=== PATIENT | male | born 1995 | race African-American/Black ===

== ENCOUNTER 2019-02-19 21:24 | Emergency (ER) | payer OTHER ==
[2019-02-19 21:35] VITALS: BP 146/86
--- NOTE | 2019-02-19 21:53 | UC ---
Headache HPI - HPI Summary HPI Summary: Pt presents to with progressive left frontal AMAYA since noon today. States woke him from a nap. Pt states pain has increased throughout the day. Feels pressure behind left eye, worse with leaning forward. No n/v. no vision changes , but "pressure" No trauma. No fever, chills. Took Motrin this afternoon and Tylenol sinus this evening with little improvement. N h/o similar. No ingestion , fumes. No trauma. No h/o headaches. No ear pain, sinus pain, sore throat medications reviewed - History Of Current Complaint Chief Complaint: UCHeadache Stated Complaint: HEADACHE Time Seen by Provider: 02/19/19 21:35 Hx Obtained From: Patient Pain Intensity: 9 Pain Scale Used: 0-10 Numeric - Allergies/Home Medications Allergies/Adverse Reactions: Allergies Allergy/AdvReac Type Severity Reaction Status Date / Time No Known Allergies Allergy Verified 02/20/19 00:33 PMH/Surg Hx/FS Hx/Imm Hx Previously Healthy: Yes - Surgical History Surgical History: None - Social History Occupation: Employed Full-time Lives: With Family Alcohol Use: Weekly Alcohol Amount: one drink Substance Use Type: None Substance Use Comment - Amount & Last Used: daily Smoking Status (MU): Former Smoker When Did the Patient Quit Smoking/Using Tobacco: one week ago Review of Systems All Other Systems Reviewed And Are Negative: Yes Constitutional: Positive: Negative Skin: Positive: Negative Eyes: Positive: Other - pressure behind left eye ENT: Positive: Negative Respiratory: Positive: Negative Cardiovascular: Positive: Negative Gastrointestinal: Positive: Negative Physical Exam - Summary Physical Exam Summary: Vital Signs Reviewed: Yes A+Ox3, appears uncomfortable - holding left frontal area Eyes: Conjunctiva Clear, ALBAN, EOM intact and full, no photophobia ENT: Hearing grossly normal, TM x2 clear no fluid, no erythema turbinates wnl mmmoist neck: supple, no LA, frontal AMAYA increases with leaning forward Respiratory: Positive: No respiratory distress, No accessory muscle use, CTA thoughout no w/r Cardiovascular: skin color reflect adequate perfusion RRR nl s1, s2 no m/r no temporal artery pain Musculoskeletal Exam: JOHANSEN x 4 without difficulty Neurological: Positive: Alert, ambulatory without difficulty CN 2-12 intact Psychological: Positive: Normal Response To Family Skin: Positive: no rash, no ecchymosis Triage Information Reviewed: Yes Vital Signs: Initial Vital Signs Temp 98.5 F 02/19/19 21:29 Pulse 100 02/19/19 21:29 Resp 16 02/19/19 21:29 BP 146/86 02/19/19 21:29 Pulse Ox 100 02/19/19 21:29 Headache Course/Dx - Course Course Of Treatment: Pt presents to with progressive left sided AMAYA today. Pt has taken Motrin and APAPsinus without relief. No fever, chills no h/o similar, no trauma, no vision changes but pressure behind left eye VS reviewed BP related to pain, urgent condition Pt with obvious discomfort recommned pt to ED for further eval - pt declined IV and analgeia at - declined EMS pt has a drive spokde with [place] [facility] in ED -aware pt coming by POV - Differential Dx/Diagnosis Provider Diagnosis: Headache above the eye region Discharge - Sign-Out/Discharge Documenting (check all that apply): Patient Departure All imaging exams completed and their final reports reviewed: No Studies - Discharge Plan Condition: Fair Disposition: HOME-RECOMMEND TO ED Patient Education Materials: Acute Headache (ED) Referrals: Roque Falcon MD [Primary Care Provider] - Additional Instructions: The doctor that evaluated you today thinks that you need additional testing that can be completed the emergency department. It is recommended that you go directly to emergency department for further evaluation. This evaluation may include blood work or imaging. This testing will be directed and decided by the provider that evaluate you at the emergency department. If pain becomes worse, you feel lightheaded, you have uncontrolled vomiting, or you have any other concerns while you are being driven to emergency department as recommended to pullover and contact 911. - Billing Disposition and Condition Condition: FAIR Disposition: Home-Recommend to ED
== END 2019-02-19 21:46 | disposition home health service (06) ==
LOC: UCEAST 21:24
DX: R51 Headache (principal); Z87.891 Personal history of nicotine dependence
CPT/HCPCS: 99202; G0463

== ENCOUNTER 2019-02-19 22:08 | Emergency (ER) | payer OTHER ==
[2019-02-20] MEDS ORDERED: Ketorolac INJ* 30 MG/ML 1 ML VIAL IV PUSH ONE (00:42)
[2019-02-20] MEDS ORDERED: diPHENhydraMINE IV* 50 MG/ML 1 ml VIAL (BENADRYL) SLOW PUSH ONE (00:43)
[2019-02-20] MEDS ORDERED: NS 0.9% 1000 ML** 1,000 ML IV ONE (00:43)
[2019-02-20] MEDS ORDERED: Metoclopramide IV* 5 MG/ML 2 ML VIAL IV SLOW PU ONE (00:43)
--- NOTE | 2019-02-20 00:56 | ED ---
Complex/Multi-Sys Presentation - HPI Summary HPI Summary: This patient is a 23 year old M presenting to [facility] accompanied by with a chief complaint of AMAYA characterized as a pressure behind his left eye since 1200 02/19/19. Symptoms aggravated by light. Symptoms alleviated by nothing. Pt reports that his neck is stiff and his eyesight in the left eye is impaired. Pt denies vomiting and similar prior episodes. Pt took ibuprofen at 1230, and Tylenol sinus relief at 1700 on 02/19/19. - History Of Current Complaint Chief Complaint: EDHeadache Time Seen by Provider: 02/20/19 00:28 Hx Obtained From: Patient Onset/Duration: Sudden Onset, Lasting Hours, Still Present Timing: Constant, Hours Location: Pain At: - left eye Character: Pressure Aggravating Factor(s): Light Alleviating Factor(s): Nothing Associated Signs And Symptoms: Positive: Headache, Other - Positive: Vision impairment in left eye, stiff neck, photophobia, pressure in left eye. Negative : Vomiting - Allergies/Home Medications Allergies/Adverse Reactions: Allergies Allergy/AdvReac Type Severity Reaction Status Date / Time No Known Allergies Allergy Verified 02/20/19 00:33 PMH/Surg Hx/FS Hx/Imm Hx Endocrine/Hematology History: Denies: Hx Diabetes, Hx Thyroid Disease Cardiovascular History: Denies: Hx Hypertension Respiratory History: Denies: Hx Asthma, Hx Chronic Obstructive Pulmonary Disease (COPD) GI History: Denies: Hx Ulcer - Surgical History Surgical History: None Infectious Disease History: No Infectious Disease History: Denies: Hx Hepatitis, Hx Human Immunodeficiency Virus (HIV), Traveled Outside the [place] in Last 30 Days - Family History Known Family History: Negative: Cardiac Disease, Diabetes - Social History Alcohol Use: Weekly Alcohol Amount: one drink Substance Use Type: Reports: Marijuana Substance Use Comment - Amount & Last Used: daily Smoking Status (MU): Former Smoker Review of Systems Positive: Photophobia, Blurred Vision - Left eye, Other - Positive: Pressure behind left eye Negative: Vomiting Musculoskeletal: Other - Positive: Stiff neck Positive: Headache All Other Systems Reviewed And Are Negative: Yes Physical Exam - Summary Physical Exam Summary: VITAL SIGNS: Reviewed. GENERAL: Patient is a well-developed and nourished MALE who is lying comfortable in the stretcher. Patient is not in any acute respiratory distress. HEAD AND FACE: No signs of trauma. No ecchymosis, hematomas or skull depressions. No sinus tenderness. EYES: PERRLA, EOMI x 2, No injected conjunctiva, no nystagmus. EARS: Hearing grossly intact. Ear canals and tympanic membranes are within normal limits. MOUTH: Oropharynx within normal limits. NECK: Supple, trachea is midline, no adenopathy, no JVD, no carotid bruit, no c- spine tenderness, neck with full ROM CHEST: Symmetric, no tenderness at palpation LUNGS: Clear to auscultation bilaterally. No wheezing or crackles. CVS: Regular rate and rhythm, S1 and S2 present, no murmurs or gallops appreciated. ABDOMEN: Soft, non-tender. No signs of distention. No rebound no guarding, and no masses palpated. Bowel sounds are normal. EXTREMITIES: FROM in all major joints, no edema, no cyanosis or clubbing. NEURO: Alert and oriented x 3. No acute neurological deficits. Speech is normal and follows commands. SKIN: Dry and warm Triage Information Reviewed: Yes Vital Signs On Initial Exam: Initial Vitals Temp Pulse Resp BP Pulse Ox 99.1 F 89 17 129/76 99 02/19/19 22:16 02/19/19 22:16 02/19/19 22:16 02/19/19 22:16 02/19/19 22:16 Vital Signs Reviewed: Yes Diagnostics - Vital Signs Vital Signs Temp Pulse Resp BP Pulse Ox 02/19/19 22:16 99.1 F 89 17 129/76 99 - Laboratory Lab Statement: Any lab studies that have been ordered have been reviewed, and results considered in the medical decision making process. Complex Multi-Symp Course/Dx Course Of Treatment: This patient is a 23 year old M presenting to [facility] accompanied by with a chief complaint of AMAYA characterized as a pressure behind his left eye since 1200 02/19/19. Symptoms aggravated by light. Symptoms alleviated by nothing. Pt reports that his neck is stiff and his eyesight in the left eye is impaired. Pt denies vomiting and similar prior episodes. Pt took ibuprofen at 1230, and Tylenol sinus relief at 1700 on 02/19/19. Physical exam findings are normal. In the ED course the patient was given Benadryl Iv 25 mg SLOW PUSH ONCE ONE, Toradol Inj 15 mg IV PUSH ED ONCE ONE, Reglan Iv 10 mg IV SLOW PU ONCE ONE, fluids. Pressure behind left eye has resolved, pt feels better and was agreeable to discharge. - Diagnoses Provider Diagnoses: Head ache Discharge - Sign-Out/Discharge Documenting (check all that apply): Patient Departure - Discharge Patient Received Moderate/Deep Sedation with Procedure: No - Discharge Plan Condition: Stable Disposition: HOME Patient Education Materials: General Headache (ED) Referrals: Roque Falcon MD [Primary Care Provider] - 3 Days Additional Instructions: Follow up with primary care physician within 3 days. Please return to the ED for worsening or concerning symptoms. - Attestation Statements Document Initiated by Scribe: Yes Documenting Scribe: TRINI MENEZES Provider For Whom Scribe is Documenting (Include Credential): MANNIE REYES MD Scribe Attestation: I, TRINI MENEZES, scribed for MANNIE REYES MD on 02/20/19 at 0357. Status of Scribe Document: Ready
[2019-02-20 02:12] VITALS: BP 124/76
== END 2019-02-20 02:11 | disposition home or self-care (01) ==
LOC: ED 22:08
DX: R51 Headache (principal); H53.149 Visual discomfort, unspecified; Z87.891 Personal history of nicotine dependence
CPT/HCPCS: 96374; 96375; 99282; J1200; J1885; J2765